=== PATIENT | male | born 1995 | race African-American/Black ===

== ENCOUNTER 2016-09-01 17:21 | Emergency (ER) | payer OTHER ==
[~2016-09-01] VITALS: Ht 170.2 cm; Wt 90.9 kg
[2016-09-01 17:30] VITALS: TEMP 36.8; O2SAT 95; Ht 170.2 cm; Wt 90.9 kg
[2016-09-01] MEDS ORDERED: SODIUM CHLORIDE 0.9% 1000ML 1,000 ML IV STA (17:31)
[2016-09-01] MEDS ORDERED: LORAZEPAM 2 MG/ML 1 ML VIAL IV STA (17:31)
--- NOTE | 2016-09-01 17:35 | EMERGENCY ROOM VISIT NOTE ---
History Report prepared by Darrius: Shefali Aguiar Under the Supervision of: Dr. Ankit Bull M.D. First contact with patient: 17:27 Chief Complaint: OVERDOSE (INTENTIONAL) Stated Complaint: OVERDOSE- UNSURE OF WHAT PILLS HE TOOK History of Present Illness The patient is a 21 year old male who presents to the Emergency Room in an altered mental status starting [employer]. His friend note that the patient was admitted 3 years ago for overdose. They say that he was drinking Chelsie this afternoon and saw him put pills into his mouth. They are unsure what he took, but they believe it was Advil. They note that he was saying that he wanted to kill himself and told them to let his grandmother and best friend know that he loves them. He states that he took 4 Advil and drank some alcohol. The history is limited due to the patient's intoxication. Source of History: patient, friend, nursing staff History Limited By: intoxication Onset: [employer] Position: other (global) Quality: other (overdose) Review of Systems Unobtainable due to patient's AMS. Family History No pertinent family history stated. Social History Drug Use: marijuana Housing Status: other Occupation Status: [employer] Current/Historical Medications No Active Prescriptions or Reported Meds Allergies Coded Allergies: Unobtainable (Verified Allergy, Unknown, UNK, 09/01/16) PT INDICATED NO KNOWN ALLERGIES Physical Exam Vital Signs Date Time Temp Pulse Resp B/P Pulse Ox O2 Delivery O2 Flow Rate FiO2 09/01/16 22:00 94 14 143/82 98 Room Air 09/01/16 21:38 100 09/01/16 20:41 96 18 94 09/01/16 20:11 99 16 126/74 96 09/01/16 19:41 100 18 93 09/01/16 19:36 100 21 95 09/01/16 19:01 122/77 09/01/16 18:36 109 97 09/01/16 18:31 92/78 09/01/16 18:00 158/71 09/01/16 17:59 155/77 09/01/16 17:53 151/62 09/01/16 17:51 114 98 09/01/16 17:36 132 95 09/01/16 17:34 132 09/01/16 17:31 161/104 09/01/16 17:30 36.8 125 18 161/104 96 Room Air 09/01/16 17:30 95 Room Air Physical Exam GENERAL: Patient has episodes of somnolence and episodes of aggressive agitation. Heavily intoxicated with slurred speech. HEENT: No acute trauma, normocephalic atraumatic, mucous membranes moist, no nasal congestion, no scleral icterus. NECK: No stridor, no adenopathy, no meningismus, trachea is midline. LUNGS: No dyspnea. Clear to auscultation and equal bilaterally. No wheeze, no rhonchi. HEART: Tachycardic rate and regular rhythm. No murmurs, rubs, gallops appreciated. ABDOMEN: Soft, nontender, bowel sounds positive, no masses appreciated, no peritonitis. BACK: No midline tenderness, no CVA tenderness EXTREMITIES: Normal motion all extremities, no cyanosis, no edema. NEUROLOGIC: Slurred speech, intoxicated, no acute motor or sensory deficits, no focal weakness, cranial nerves grossly intact. SKIN: No rash, no jaundice, no diaphoresis. Tattoos. Medical Decision & Procedures Laboratory Results 09/01/16 17:45 Red Blood Count 5.28, Mean Corpuscular Volume 86.6, Mean Corpuscular Hemoglobin 30.1, Mean Corpuscular Hemoglobin Concent 34.8, Mean Platelet Volume 11.1, Neutrophils (%) (Auto) 53.6, Lymphocytes (%) (Auto) 39.1, Monocytes (%) (Auto) 5.4, Eosinophils (%) (Auto) 1.5, Basophils (%) (Auto) 0.2, Neutrophils # (Auto) 4.57, Lymphocytes # (Auto) 3.34, Monocytes # (Auto) 0.46, Eosinophils # (Auto) 0.13, Basophils # (Auto) 0.02 09/01/16 17:45 Test 09/01/16 17:45 09/01/16 19:02 09/01/16 21:21 White Blood Count 8.54 K/uL (4.8-10.8) Red Blood Count 5.28 M/uL (4.7-6.1) Hemoglobin 15.9 g/dL (14.0-18.0) Hematocrit 45.7 % (42-52) Mean Corpuscular Volume 86.6 fL (80-100) Mean Corpuscular Hemoglobin 30.1 pg (25-34) Mean Corpuscular Hemoglobin Concent 34.8 g/dl (32-36) Platelet Count 267 K/uL (130-400) Mean Platelet Volume 11.1 fL (7.4-10.4) Neutrophils (%) (Auto) 53.6 % Lymphocytes (%) (Auto) 39.1 % Monocytes (%) (Auto) 5.4 % Eosinophils (%) (Auto) 1.5 % Basophils (%) (Auto) 0.2 % Neutrophils # (Auto) 4.57 K/uL (1.4-6.5) Lymphocytes # (Auto) 3.34 K/uL (1.2-3.4) Monocytes # (Auto) 0.46 K/uL (0.11-0.59) Eosinophils # (Auto) 0.13 K/uL (0-0.5) Basophils # (Auto) 0.02 K/uL (0-0.2) RDW Standard Deviation 39.0 fL (36.4-46.3) RDW Coefficient of Variation 12.2 % (11.5-14.5) Immature Granulocyte % (Auto) 0.2 % Immature Granulocyte # (Auto) 0.02 K/uL (0.00-0.02) Anion Gap 8.0 mmol/L (3-11) Est Creatinine Clear Calc Drug Dose 103.8 ml/min Estimated GFR () 98.9 Estimated GFR (Non- 85.3 BUN/Creatinine Ratio 16.5 (10-20) Calcium Level 8.7 mg/dl (8.5-10.1) Total Bilirubin 0.4 mg/dl (0.2-1) Aspartate Amino Transf (AST/SGOT) 17 U/L (15-37) Alanine Aminotransferase (ALT/SGPT) 36 U/L (12-78) Alkaline Phosphatase 71 U/L (45-117) Total Protein 8.3 gm/dl (6.4-8.2) Albumin 4.5 gm/dl (3.4-5.0) Globulin 3.8 gm/dl (2.5-4.0) Albumin/Globulin Ratio 1.2 (0.9-2) Thyroid Stimulating Hormone (TSH) 0.635 uIu/ml (0.300-4.500) Salicylates Level < 1.7 mg/dl (2.8-20) Urine Color YELLOW Urine Appearance CLEAR (CLEAR) Urine pH 6.5 (4.5-7.5) Urine Specific [place] 1.016 (1.000-1.030) Urine Protein NEG (NEG) Urine Glucose (UA) NEG (NEG) Urine Ketones NEG (NEG) Urine Occult Blood NEG (NEG) Urine Nitrite NEG (NEG) Urine Bilirubin NEG (NEG) Urine Urobilinogen NEG (NEG) Urine Leukocyte Esterase NEG (NEG) Urine WBC (Auto) 0 /hpf (0-5) Urine RBC (Auto) 0-4 /hpf (0-4) Urine Hyaline Casts (Auto) 0 /lpf (0-5) Urine Epithelial Cells (Auto) 0-5 /lpf (0-5) Urine Bacteria (Auto) NEG (NEG) Urine Opiates Screen NEG (NEG) Urine Methadone, Qualitative NEG (NEG) Urine Barbiturates NEG (NEG) Urine Phencyclidine (PCP) Level NEG (NEG) Ur Amphetamine/Methamphetamine NEG (NEG) MDMA (Ecstasy) Screen NEG (NEG) Urine Benzodiazepines Screen NEG (NEG) Urine Cocaine Metabolite NEG (NEG) Urine Marijuana (THC) POS (NEG) Acetaminophen Level < 2 ug/ml (10-30) Ethyl Alcohol mg/dL 13.0 mg/dl (0-3) Laboratory results as reviewed by me. Medications Administered Medications (Trade) Dose Ordered Sig/Abby Route Start Time Stop Time Status Last Admin Dose Admin Lorazepam 2 mg 2 mg NOW STAT IV 09/01/16 17:31 09/01/16 17:32 DC 09/01/16 17:48 2 MG Sodium Chloride (Nss 1000ml) 1,000 ml @ 999 mls/hr Q1H1M STAT IV 09/01/16 17:31 09/01/16 18:33 DC 09/01/16 17:48 999 MLS/HR ECG Indication: toxicologic Rate (beats per minute): 117 Rhythm: sinus tachycardia Findings: no acute ischemic change, no ectopy, other (QTC 438) ED Course 1727: The patient was evaluated in room B1. A complete history and physical exam was performed. 173: NSS 1000 ml @ 999 mls/hr IV, Lorazepam 2 mg IV. 1811: I reevaluated the patient. He is much calmer now. He is being evasive about what he took and why he took it. 1825: I reevaluated the patient. He is stable. 1900: I reevaluated the patient. He is mildly tachycardic. He feels well. He is in no distress. 1918: I reevaluated the patient. He still notes that he drank a large amount of alcohol. He admits to taking Benadryl. The nurses are trying to figure out what happened to his urine. 2200: I reevaluated the patient. He is awake, alert, and answering all questions. He still denies any suicidal ideation. He denies that this was a suicide attempt. His friend is at bedside. We are awaiting [facility] arrival. 2229: The patient was signed out to Dr. Francisco at the end of my shift. Medical Decision Differential: Suicide Attempt, Mood Disorder, Poisoning, Medication OD, Narcotic OD, Tylenol OD, Salicylated OD, Prolonged QTc, Metabolic/Electrolyte imbalance, Trauma, Rhabdo, Infectious, amongst other pathologies entertained. 21 yr old male arrive with complaint of generalized weakness. He is quite upset on arrival and acting agitated then obtunded then agitated ago. Given Ativan to calm down with great result. He is adamant this wasn't suicide attempt but was mumbling about taking different pills. Etoh not significantly elevated (even rechecked which was still low). He is in no distress and feeling well. Many repeat eval. He adamantly denies suicidal ideation nor attempt at doing so. Admits he was very upset but that this was not attempt to kill self. Labs look good. EKG OK. 302 petition on chart though with initial eval not very convincing thus I will have [facility] come evaluate patient. Signed out to Dr Francisco awaiting eval. Impression Primary Impression: Altered mental status Additional Impression: Depression Scribe Attestation The scribe's documentation has been prepared under my direction and personally reviewed by me in its entirety. I confirm that the note above accurately reflects all work, treatment, procedures, and medical decision making performed by me. Departure Information Prescriptions No Active Prescriptions or Reported Meds Referrals No Doctor, Assigned (PCP) Patient Instructions My [facility] Problem Qualifiers Primary Impression: Altered mental status Altered mental status type: transient alteration of awareness Qualified Codes : R40.4 - Transient alteration of awareness Additional Impression:
[2016-09-01 18:44] LABS: BASO % 0.2 %; BASO ABS # 0.02 K/uL (0-0.2); COMPLETE YES; EOS % 1.5 %; HEMATOCRIT 45.7 % (42-52); IG% 0.2 %; LYMPH % 39.1 %; LYMPH ABS # 3.34 K/uL (1.2-3.4); MEAN CELL VOLUME 86.6 fL (80-100); MEAN CORPUSCULAR HEMOGLOBIN 30.1 pg (25-34); MEAN CORPUSCULAR HGB CONC 34.8 g/dl (32-36); MEAN PLATELET VOLUME 11.1 fL (7.4-10.4); MONO % 5.4 %; NEUT % 53.6 %; PLATELET COUNT 267 K/uL (130-400); RED BLOOD COUNT 5.28 M/uL (4.7-6.1); WHITE BLOOD COUNT 8.54 K/uL (4.8-10.8)
[2016-09-01 18:56] LABS: BUN/CREATININE RATIO 16.5 (10-20); CALCIUM 8.7 mg/dl (8.5-10.1); CREATININE 1.2 mg/dl (0.60-1.40); POTASSIUM 3.3 mmol/L (3.5-5.1)
[2016-09-01 19:07] LABS: ACETAMINOPHEN < 2 ug/ml (10-30); ALB/GLOB RATIO 1.2 (0.9-2); THYROID STIMULATING HORMONE 0.635 uIu/ml (0.300-4.500)
[2016-09-01 19:49] LABS: URINE APPEARANCE CLEAR (CLEAR); URINE BILIRUBIN NEG (NEG); URINE COLOR YELLOW; URINE EPITHELIAL CELL AUTO 0-5 /lpf (0-5); URINE NITRITE NEG (NEG); URINE PH 6.5 (4.5-7.5); URINE SPECIFIC GRAVITY 1.016 (1.000-1.030); UROBILINOGEN NEG (NEG); ZZUR CULT IF INDIC CLEAN CATCH NO
[2016-09-01 19:50] LABS: MANUAL MICROSCOPIC REQUIRED? NO; REVIEW REQ? NO
[2016-09-01 20:16] LABS: BENZODIAZEPINE, URINE NEG (NEG); COCAINE,URINE NEG (NEG); PHENCYCLIDINE, URINE NEG (NEG)
--- NOTE | 2016-09-02 00:27 | EMERGENCY ROOM VISIT NOTE ---
ED Visit Note First contact with patient: 00:24 Patient was seen by the crisis counselor. Patient did contract for safety. Patient does not meet current requirements for admission for psychiatric evaluation per crisis counselor Discharged to home Stable condition Acute anxiety
[2016-09-02 00:50] VITALS: BP 144/97; PULSE 86; O2SAT 99
== END 2016-09-02 00:51 | disposition home or self-care (01) ==
LOC: C.EDB 17:25 → C.EDA 09-02 00:51
DX: R40.4 Transient alteration of awareness (principal); F32.9 Major depressive disorder, single episode, unspecified; F12.90 Cannabis use, unspecified, uncomplicated; R00.0 Tachycardia, unspecified